=== PATIENT | male | born 1990 | race Caucasian/White ===

== ENCOUNTER 2020-02-24 17:07 | Observation (INO) ==
[2020-02-24] MEDS ORDERED: 0.9 % Sodium Chloride 1,000 ML IVC ONE (18:04)
[2020-02-24 18:07] LABS: Basophils % 0.1 %; Eosinophils # 0.1 K/mcL (0.0-0.6); Eosinophils % 0.4 %; Hematocrit 45.5 % (37.5-50.1); Immature Granulocytes % 0.3 % (0-4); Lymphocytes # 1.7 K/mcL (0.6-4.6); Lymphocytes % 12.2 %; Mean Corpuscular Volume 87.8 fL (83.0-100.0); Mean Platelet Volume 10.5 fL (9.4-12.4); Monocytes # 1.1 K/mcL (0.0-1.3); Monocytes % 7.7 %; Neutrophils # 10.9 K/mcL (1.6-8.9); Platelet Count 215 K/mcL (140-400); Red Blood Count 5.18 M/mcL (4.19-5.50); Segmented Neutrophils % 79.3 %; White Blood Count 13.7 K/mcL (4.3-11.1)
[2020-02-24 18:11] LABS: INR 1.2; Prothrombin Time 13.4 Seconds (9.4-12.1)
[2020-02-24 18:27] LABS: Alanine Aminotransferase 34 Units/L (7-52); Albumin 4.3 g/dL (3.5-5.7); Albumin/Globulin Ratio 1.1 (1.1-2.2); Alkaline Phosphatase 94 Units/L (34-104); Aspartate Amino Transferase 24 Units/L (13-39); BUN/Creatinine Ratio 11 (6-26); Bilirubin,Direct 0.2 mg/dL (0.0-0.2); Bilirubin,Indirect 0.2 mg/dL (0.0-1.0); Bilirubin,Total 0.4 mg/dL (0.3-1.0); Blood Urea Nitrogen 7 mg/dL (6-20); Calcium 9.8 mg/dL (8.6-10.3); Carbon Dioxide 26 mEq/L (23-29); Chloride 101 mEq/L (98-107); Globulin 3.8 g/dL (2.4-3.5); Glucose 137 mg/dL (70-105); Osmolality,Calculated 282 (280-300); Sodium 136 mEq/L (136-145); Total Protein 8.1 g/dL (6.4-8.9); eGFR For African Americans > 60 (> 60); eGFR For Non-African Americans > 60 (> 60)
[2020-02-24 18:30] LABS: Bilirubin,Urine Negative (Negative); Blood,Urine Negative (Negative); Clarity,Urine Clear (Clear); Color,Urine Light-Yellow (Yellow); Glucose,Urine (UA) Normal (Normal); Ketones,Urine 60 mg/dL (Negative); Leukocyte Esterase,Urine Negative (Negative); Nitrite,Urine Negative (Negative); Protein,Urine Trace mg/dL (Neg-Trace); Specific Gravity,Urine 1.026 (1.010-1.025); Urobilinogen,Urine Normal (Normal)
[2020-02-24 18:36] LABS: Amphetamine Screen,Urine Negative ng/mL (Cutoff=1000); Barbiturate Screen,Urine Negative ng/mL (Cutoff=200); Benzodiazepines Screen,Urine Negative ng/mL (Cutoff=200); Cannabinoid Screen,Urine Negative ng/mL (Cutoff = 50); Cocaine Screen,Urine Negative ng/mL (Cutoff= 300); Opiate Screen,Urine Negative ng/mL (Cutoff=300); Phencyclidine Screen,Urine Negative ng/mL (Cutoff=25)
[2020-02-24] MEDS ORDERED: *HR* Promethazine 25 MG/ML VIAL IVP PRN (19:53)
[2020-02-24] MEDS ORDERED: Naloxone 0.4 MG/ML INJ IVP PRN (19:53)
[2020-02-24] MEDS ORDERED: Acetaminophen 325 MG TABLET PO PRN (19:53)
[2020-02-24] MEDS: 0.9 % Sodium Chloride 1,000 ML IVC SCH (20:35)
[2020-02-24 20:37] LABS: Hepatitis B Surface Antigen Nonreactive (Nonreactive)
[2020-02-24 21:08] LABS: Hepatitis A Antibody IgM Nonreactive (Nonreactive)
[2020-02-24 21:10] LABS: Lipase 4 Units/L (11-82)
[2020-02-24] MEDS: *HR* HYDROmorphone (PF) 1 MG/ML SYRINGE IVP PRN (21:13)
[2020-02-24] MEDS: Nicotine 14 MG PATCH.TD24 TD SCH (21:13)
[2020-02-25 00:05] LABS: Hepatitis B Core IgM Equivocal (Nonreactive); Hepatitis C Virus Antibody Reactive (Nonreactive)
[2020-02-25] MEDS ORDERED: Ibuprofen 800 MG TABLET PO ONE (00:19)
[2020-02-25] MEDS: *HR* HYDROmorphone (PF) 1 MG/ML SYRINGE IVP PRN ×4 (03:02→18:27)
[2020-02-25 03:23] LABS: Basophils % 0.2 %; Eosinophils # 0.1 K/mcL (0.0-0.6); Eosinophils % 0.7 %; Hematocrit 41.2 % (37.5-50.1); Hemoglobin 13.6 g/dL (12.9-16.9); Immature Granulocytes % 0.5 % (0-4); Lymphocytes # 1.8 K/mcL (0.6-4.6); Lymphocytes % 14.1 %; Mean Corpuscular Hemoglobin 29.3 pg (28.0-33.3); Mean Corpuscular Volume 88.8 fL (83.0-100.0); Mean Platelet Volume 10.6 fL (9.4-12.4); Monocytes % 8.2 %; Neutrophils # 9.7 K/mcL (1.6-8.9); Platelet Count 197 K/mcL (140-400); Red Blood Count 4.64 M/mcL (4.19-5.50); Segmented Neutrophils % 76.3 %; White Blood Count 12.6 K/mcL (4.3-11.1)
[2020-02-25 03:25] LABS: INR 1.3; Prothrombin Time 14.6 Seconds (9.4-12.1)
[2020-02-25 03:42] LABS: Alanine Aminotransferase 30 Units/L (7-52); Albumin 3.7 g/dL (3.5-5.7); Albumin/Globulin Ratio 1.1 (1.1-2.2); Alkaline Phosphatase 80 Units/L (34-104); Aspartate Amino Transferase 21 Units/L (13-39); BUN/Creatinine Ratio 12 (6-26); Bilirubin,Total 0.4 mg/dL (0.3-1.0); Blood Urea Nitrogen 7 mg/dL (6-20); Calcium 8.9 mg/dL (8.6-10.3); Carbon Dioxide 25 mEq/L (23-29); Chloride 104 mEq/L (98-107); Chol/HDL Ratio 3.9 (0-4.9); Cholesterol 104 mg/dL (< 200); Globulin 3.5 g/dL (2.4-3.5); Glucose 96 mg/dL (70-105); HDL Cholesterol 27 mg/dL (40-59); LDL Cholesterol,Calculated 57 mg/dL (0-99); Magnesium 1.7 mg/dL (1.6-2.6); Osmolality,Calculated 282 (280-300); Phosphorous 3.1 mg/dL (2.7-4.5); Potassium 4.1 mEq/L (3.5-5.1); Sodium 137 mEq/L (136-145); Total Protein 7.2 g/dL (6.4-8.9); Triglycerides 100 mg/dL (< 150); eGFR For African Americans > 60 (> 60); eGFR For Non-African Americans > 60 (> 60)
[2020-02-25] MEDS ORDERED: *HR* OxyCODONE Immed Rel 5 MG TABLET PO ONE (04:24)
[2020-02-25] MEDS: 0.9 % Sodium Chloride 1,000 ML IVC SCH (04:34)
[2020-02-25 08:08] LABS: Estimated Average Glucose 126 mg/dl
[2020-02-25] MEDS ORDERED: *HR* FentaNYL (PF) 100 MCG/2 ML VIAL IVP PRN (10:16)
[2020-02-25] MEDS: Ringers Solution, Lactated 1,000 ML IVC SCH ×2 (11:15→19:47)
[2020-02-25] MEDS: Pantoprazole 40 MG VIAL IVP SCH ×2 (11:56→18:27)
[2020-02-25] MEDS ORDERED: Lidocaine -MPF 2% 5 ML VIAL INFILT ONE (15:04)
[2020-02-25] MEDS ORDERED: *HR* Propofol 200 MG/20 ML VIAL IVP ONE (15:04)
[2020-02-25] MEDS: Nicotine 14 MG PATCH.TD24 TD SCH (23:21)
[2020-02-26] MEDS: *HR* HYDROmorphone (PF) 1 MG/ML SYRINGE IVP PRN ×2 (03:07→09:37)
[2020-02-26] MEDS: Ringers Solution, Lactated 1,000 ML IVC SCH (05:14)
[2020-02-26] MEDS: Pantoprazole 40 MG VIAL IVP SCH (05:16)
[2020-02-26 10:22] VITALS: BP 153/86
[2020-02-29 14:59] LABS: HCV Quant Interpretation DETECTED (Not Detected); HCV Quant Log 4.48 log IU/mL
== END 2020-02-26 15:05 | disposition home or self-care (01) ==
LOC: 3ANU 17:07 → EMEROOARM 17:07 → SUATTDRO 19:04 → 3ANU 19:47
PROVIDERS: ADMIT Pharmacist; ATTEND Family Medicine

== ENCOUNTER 2020-02-28 19:46 | Inpatient (IN) ==
[2020-02-28] MEDS ORDERED: Isovue-370 500 ML BOTTLE IVP ONE (20:12)
[2020-02-28] MEDS ORDERED: Ondansetron 4 MG/2 ML VIAL IVP STA (20:12)
[2020-02-28] MEDS ORDERED: 0.9 % Sodium Chloride 1,000 ML IVC STA (20:12)
[2020-02-28 20:43] LABS: Basophils % 0.2 %; Eosinophils # 0.1 K/mcL (0.0-0.6); Eosinophils % 0.4 %; Hematocrit 44.3 % (37.5-50.1); Hemoglobin 14.5 g/dL (12.9-16.9); Immature Granulocytes % 0.6 % (0-4); Lymphocytes # 1.4 K/mcL (0.6-4.6); Lymphocytes % 8.7 %; Mean Corpuscular HGB Conc 32.7 g/dL (31.6-35.5); Mean Corpuscular Hemoglobin 28.3 pg (28.0-33.3); Mean Corpuscular Volume 86.4 fL (83.0-100.0); Monocytes # 1.3 K/mcL (0.0-1.3); Monocytes % 8.4 %; Neutrophils # 12.8 K/mcL (1.6-8.9); Platelet Count 312 K/mcL (140-400); Red Blood Count 5.13 M/mcL (4.19-5.50); Red Cell Distribution Width 12.6 % (11.5-14.5); Segmented Neutrophils % 81.7 %; White Blood Count 15.7 K/mcL (4.3-11.1)
[2020-02-28 20:56] LABS: Alanine Aminotransferase 29 Units/L (7-52); Albumin 4.3 g/dL (3.5-5.7); Alkaline Phosphatase 102 Units/L (34-104); Aspartate Amino Transferase 21 Units/L (13-39); BUN/Creatinine Ratio 9 (6-26); Bilirubin,Direct 0.1 mg/dL (0.0-0.2); Bilirubin,Indirect 0.3 mg/dL (0.0-1.0); Bilirubin,Total 0.4 mg/dL (0.3-1.0); Blood Urea Nitrogen 6 mg/dL (6-20); Calcium 9.8 mg/dL (8.6-10.3); Carbon Dioxide 26 mEq/L (23-29); Chloride 96 mEq/L (98-107); Globulin 4.4 g/dL (2.4-3.5); Glucose 122 mg/dL (70-105); Lipase 6 Units/L (11-82); Osmolality,Calculated 273 (280-300); Potassium 3.8 mEq/L (3.5-5.1); Sodium 132 mEq/L (136-145); Total Protein 8.7 g/dL (6.4-8.9); eGFR For African Americans > 60 (> 60); eGFR For Non-African Americans > 60 (> 60)
[2020-02-28] MEDS ORDERED: Piperacillin/Tazobactam 3.375 GM in 0.9 % Sodium Chloride Mini Bag 100 ML IVPB ONE (22:41)
[2020-02-28] MEDS ORDERED: Vancomycin 1,250 MG/262.5 ML IV.SOLN IVPB ONE (23:00)
[2020-02-29] MEDS ORDERED: Ondansetron 4 MG/2 ML VIAL IVP PRN (00:49)
[2020-02-29] MEDS ORDERED: Naloxone 0.4 MG/ML INJ IVP PRN (00:49)
[2020-02-29] MEDS: 0.9 % Sodium Chloride 1,000 ML IVC SCH ×3 (02:36→13:26)
[2020-02-29] MEDS: Nicotine 14 MG PATCH.TD24 TD SCH (02:36)
[2020-02-29 02:39] LABS: Basophils % 0.3 %; Eosinophils # 0.1 K/mcL (0.0-0.6); Eosinophils % 0.5 %; Hematocrit 37.1 % (37.5-50.1); Immature Granulocytes % 0.3 % (0-4); Lymphocytes # 1.1 K/mcL (0.6-4.6); Lymphocytes % 9.3 %; Mean Corpuscular HGB Conc 34.2 g/dL (31.6-35.5); Mean Corpuscular Hemoglobin 29.3 pg (28.0-33.3); Mean Corpuscular Volume 85.7 fL (83.0-100.0); Monocytes # 1.1 K/mcL (0.0-1.3); Monocytes % 9.2 %; Neutrophils # 9.7 K/mcL (1.6-8.9); Platelet Count 221 K/mcL (140-400); Red Blood Count 4.33 M/mcL (4.19-5.50); Red Cell Distribution Width 12.5 % (11.5-14.5); Segmented Neutrophils % 80.4 %; White Blood Count 12.1 K/mcL (4.3-11.1)
[2020-02-29 02:41] LABS: Hemoglobin 12.7 g/dL (12.9-16.9)
[2020-02-29] MEDS: Acetaminophen 325 MG TABLET PO PRN ×3 (02:47→23:56)
[2020-02-29 02:57] LABS: Alanine Aminotransferase 25 Units/L (7-52); Albumin 3.5 g/dL (3.5-5.7); Albumin/Globulin Ratio 0.9 (1.1-2.2); Alkaline Phosphatase 84 Units/L (34-104); Aspartate Amino Transferase 19 Units/L (13-39); BUN/Creatinine Ratio 8 (6-26); Bilirubin,Total 0.3 mg/dL (0.3-1.0); Blood Urea Nitrogen 5 mg/dL (6-20); Calcium 8.6 mg/dL (8.6-10.3); Carbon Dioxide 24 mEq/L (23-29); Chloride 101 mEq/L (98-107); Globulin 3.8 g/dL (2.4-3.5); Glucose 113 mg/dL (70-105); Magnesium 1.8 mg/dL (1.6-2.6); Osmolality,Calculated 274 (280-300); Phosphorous 3.3 mg/dL (2.7-4.5); Potassium 3.8 mEq/L (3.5-5.1); Sodium 133 mEq/L (136-145); Total Protein 7.3 g/dL (6.4-8.9); eGFR For African Americans > 60 (> 60); eGFR For Non-African Americans > 60 (> 60)
[2020-02-29 03:31] LABS: INR 1.3; Prothrombin Time 15.1 Seconds (9.4-12.1)
[2020-02-29] MEDS: *HR* Heparin 5,000 UNIT/ML VIAL SQ SCH ×4 (05:26→21:32)
[2020-02-29] MEDS: Piperacillin/Tazobactam 3.375 GM in 0.9 % Sodium Chloride Mini Bag 100 ML IVPB SCH ×3 (07:29→23:57)
[2020-03-01] MEDS: Vancomycin 1,250 MG/262.5 ML IV.SOLN IVPB SCH ×3 (00:27→16:17)
[2020-03-01] MEDS: 0.9 % Sodium Chloride 1,000 ML IVC SCH ×3 (00:28→14:30)
[2020-03-01] MEDS: Nicotine 14 MG PATCH.TD24 TD SCH (03:02)
[2020-03-01] MEDS: *HR* Heparin 5,000 UNIT/ML VIAL SQ SCH ×3 (03:10→20:18)
[2020-03-01 05:01] LABS: Basophils % 0.3 %; Eosinophils # 0.2 K/mcL (0.0-0.6); Eosinophils % 1.7 %; Hematocrit 39.6 % (37.5-50.1); Hemoglobin 13.1 g/dL (12.9-16.9); Immature Granulocytes % 0.8 % (0-4); Lymphocytes # 1.8 K/mcL (0.6-4.6); Lymphocytes % 15.3 %; Mean Corpuscular HGB Conc 33.1 g/dL (31.6-35.5); Mean Corpuscular Hemoglobin 28.1 pg (28.0-33.3); Mean Platelet Volume 10.3 fL (9.4-12.4); Monocytes # 1.4 K/mcL (0.0-1.3); Monocytes % 11.9 %; Neutrophils # 8.4 K/mcL (1.6-8.9); Platelet Count 247 K/mcL (140-400); Red Blood Count 4.66 M/mcL (4.19-5.50); Red Cell Distribution Width 12.7 % (11.5-14.5)
[2020-03-01 05:10] LABS: BUN/Creatinine Ratio 10 (6-26); Blood Urea Nitrogen 7 mg/dL (6-20); Calcium 8.9 mg/dL (8.6-10.3); Carbon Dioxide 21 mEq/L (23-29); Chloride 106 mEq/L (98-107); Glucose 101 mg/dL (70-105); Osmolality,Calculated 284 (280-300); Phosphorous 3.7 mg/dL (2.7-4.5); Potassium 3.9 mEq/L (3.5-5.1); Sodium 138 mEq/L (136-145); eGFR For African Americans > 60 (> 60); eGFR For Non-African Americans > 60 (> 60)
[2020-03-01] MEDS: Piperacillin/Tazobactam 3.375 GM in 0.9 % Sodium Chloride Mini Bag 100 ML IVPB SCH ×3 (06:54→23:43)
[2020-03-01] MEDS ORDERED: *HR* Propofol 200 MG/20 ML VIAL IVP ONE (11:04)
[2020-03-01] MEDS ORDERED: Lidocaine -MPF 4% 5 ML AMPUL ONE (11:04)
[2020-03-01] MEDS ORDERED: Lidocaine -MPF 2% 2 ML VIAL ONE (11:04)
[2020-03-01] MEDS ORDERED: *HR* Rocuronium Bromide 50 MG/5 ML VIAL ONE (11:04)
[2020-03-01] MEDS ORDERED: Ondansetron 4 MG/2 ML VIAL IVP ONE (11:04)
[2020-03-01] MEDS ORDERED: *HR* FentaNYL (PF) 100 MCG/2 ML VIAL ONE (11:04)
[2020-03-01] MEDS ORDERED: *HR* OxyCODONE Immed Rel 5 MG TABLET PO PRN (11:04)
[2020-03-01] MEDS ORDERED: Dexamethasone 4 MG/ML VIAL ONE (11:04)
[2020-03-01] MEDS ORDERED: *HR* Midazolam HCl 2 MG/2 ML VIAL ONE (11:04)
[2020-03-01] MEDS ORDERED: *HR* HYDROMORPHONE 2 MG/ML VIAL ONE ×2 (11:30→11:56)
[2020-03-01] MEDS ORDERED: *HR* Magnesium Sulfate 1 GM/2 ML VIAL ONE (11:33)
[2020-03-01] MEDS ORDERED: Ketorolac 30 MG/ML VIAL ONE (11:46)
[2020-03-01] MEDS: *HR* HYDROmorphone PF 0.5 MG/0.5 ML SYRINGE IVP PRN ×4 (12:12→12:38)
[2020-03-01] MEDS: *HR* Promethazine 25 MG/ML VIAL IVP PRN ×2 (12:32→12:40)
[2020-03-01] MEDS: *HR* HYDROmorphone (PF) 1 MG/ML SYRINGE IVP PRN ×4 (12:46→13:08)
[2020-03-01] MEDS ORDERED: Acetaminophen IV 1,000 MG/100 ML INFUS..BTL IVPB ONE (13:07)
[2020-03-01] MEDS ORDERED: *HR* Midazolam HCl 2 MG/2 ML VIAL IVP ONE (13:12)
[2020-03-01] MEDS ORDERED: Ondansetron 4 MG/2 ML VIAL IVP PRN (13:45)
[2020-03-01] MEDS: Gabapentin 300 MG CAPSULE PO SCH ×2 (15:10→20:17)
[2020-03-01] MEDS: Ketorolac 15 MG/ML VIAL IVP SCH ×2 (16:13→23:42)
[2020-03-01] MEDS: Sennosides/Docusate Sodium TABLET PO SCH (20:17)
[2020-03-01] MEDS: *HR* HYDROcodone/Acet 5/325 mg TABLET PO PRN (21:47)
[2020-03-02] MEDS: 0.9 % Sodium Chloride 1,000 ML IVC SCH (00:54)
[2020-03-02] MEDS: Vancomycin 1,250 MG/262.5 ML IV.SOLN IVPB SCH (00:57)
[2020-03-02] MEDS: Nicotine 14 MG PATCH.TD24 TD SCH (01:57)
[2020-03-02] MEDS: *HR* HYDROcodone/Acet 5/325 mg TABLET PO PRN ×3 (05:27→22:13)
[2020-03-02] MEDS: *HR* Heparin 5,000 UNIT/ML VIAL SQ SCH ×3 (05:28→22:13)
[2020-03-02] MEDS: Ketorolac 15 MG/ML VIAL IVP SCH ×3 (05:28→17:21)
[2020-03-02] MEDS: Piperacillin/Tazobactam 3.375 GM in 0.9 % Sodium Chloride Mini Bag 100 ML IVPB SCH ×2 (07:40→16:06)
[2020-03-02] MEDS: Vancomycin 1,500 MG/265 ML IV.SOLN IVPB SCH ×2 (09:17→17:21)
[2020-03-02] MEDS: Gabapentin 300 MG CAPSULE PO SCH ×3 (09:18→22:13)
[2020-03-02] MEDS: Sennosides/Docusate Sodium TABLET PO SCH ×2 (09:18→22:13)
[2020-03-02] MEDS ORDERED: *HR* OxyCODONE/APAP 5/325 TABLET PO PRN (15:56)
[2020-03-03] MEDS: Ketorolac 15 MG/ML VIAL IVP SCH ×4 (00:21→17:03)
[2020-03-03] MEDS: Vancomycin 1,500 MG/265 ML IV.SOLN IVPB SCH ×2 (00:21→08:23)
[2020-03-03] MEDS: Piperacillin/Tazobactam 3.375 GM in 0.9 % Sodium Chloride Mini Bag 100 ML IVPB SCH ×2 (00:22→08:23)
[2020-03-03] MEDS: *HR* Heparin 5,000 UNIT/ML VIAL SQ SCH ×3 (04:55→20:42)
[2020-03-03] MEDS: *HR* HYDROcodone/Acet 5/325 mg TABLET PO PRN (04:56)
[2020-03-03] MEDS: Nicotine 14 MG PATCH.TD24 TD SCH (05:30)
[2020-03-03] MEDS: Sennosides/Docusate Sodium TABLET PO SCH ×2 (08:22→20:41)
[2020-03-03] MEDS: Gabapentin 300 MG CAPSULE PO SCH ×3 (08:22→20:41)
[2020-03-03 09:22] LABS: BUN/Creatinine Ratio 16 (6-26); Blood Urea Nitrogen 10 mg/dL (6-20); Calcium 9.2 mg/dL (8.6-10.3); Carbon Dioxide 26 mEq/L (23-29); Chloride 106 mEq/L (98-107); Glucose 95 mg/dL (70-105); Osmolality,Calculated 285 (280-300); Phosphorous 3.4 mg/dL (2.7-4.5); Potassium 4.1 mEq/L (3.5-5.1); Sodium 138 mEq/L (136-145); eGFR For African Americans > 60 (> 60); eGFR For Non-African Americans > 60 (> 60)
[2020-03-03 09:32] LABS: Basophils % 0.4 %; Eosinophils # 0.1 K/mcL (0.0-0.6); Hematocrit 38.4 % (37.5-50.1); Hemoglobin 12.2 g/dL (12.9-16.9); Immature Granulocytes % 0.9 % (0-4); Lymphocytes # 2.4 K/mcL (0.6-4.6); Lymphocytes % 20.7 %; Mean Corpuscular HGB Conc 31.8 g/dL (31.6-35.5); Mean Corpuscular Hemoglobin 28.3 pg (28.0-33.3); Mean Corpuscular Volume 89.1 fL (83.0-100.0); Mean Platelet Volume 10.1 fL (9.4-12.4); Monocytes # 0.8 K/mcL (0.0-1.3); Monocytes % 7.4 %; Neutrophils # 7.9 K/mcL (1.6-8.9); Platelet Count 327 K/mcL (140-400); Red Blood Count 4.31 M/mcL (4.19-5.50); Red Cell Distribution Width 12.8 % (11.5-14.5); Segmented Neutrophils % 69.6 %; White Blood Count 11.4 K/mcL (4.3-11.1)
[2020-03-03] MEDS ORDERED: cefTRIAXone 2,000 MG in Water for inj. (sterile) 20 ML IVP SCH (13:00)
[2020-03-03] MEDS: metroNIDAZOLE 500 MG TABLET PO SCH ×2 (14:22→20:42)
[2020-03-04] MEDS: Ketorolac 15 MG/ML VIAL IVP SCH ×2 (00:35→05:18)
[2020-03-04] MEDS: Nicotine 14 MG PATCH.TD24 TD SCH (01:48)
[2020-03-04] MEDS: *HR* Heparin 5,000 UNIT/ML VIAL SQ SCH (05:18)
[2020-03-04 07:05] VITALS: BP 135/90
[2020-03-04] MEDS: Gabapentin 300 MG CAPSULE PO SCH (07:37)
[2020-03-04] MEDS: metroNIDAZOLE 500 MG TABLET PO SCH (07:37)
[2020-03-04] MEDS: Sennosides/Docusate Sodium TABLET PO SCH (07:37)
== END 2020-03-04 11:11 | disposition home or self-care (01) | DRG 854 ==
LOC: 3BNU 19:46 → EMEROOARM 19:46 → SUATTDRO 02-29 00:09 → 3BNU 02-29 00:25 → 2NNU 03-01 13:40 → SUATTDRO 03-01 13:56
PROVIDERS: ADMIT Internal Medicine; ATTEND Internal Medicine